=== PATIENT | female | born 1950 | race Caucasian/White ===

== ENCOUNTER 2019-05-19 11:58 | Emergency (ER) | payer MEDICARE, BC ==
[~2019-05-19] VITALS: Ht 162.6 cm; Wt 77.6 kg
[~2019-05-19 11:58] MED LIST: PHEN-716 PO
[2019-05-19] MEDS ORDERED: acetaminophen 325mg tablet PO ONE (12:10)
[2019-05-19 13:32] VITALS: BP 128/63
== END 2019-05-19 15:09 | disposition home or self-care (01) ==
LOC: ER 11:58
DX: S02.2XXA Fracture of nasal bones, initial encounter for closed fracture (principal); M25.532 Pain in left wrist; Z88.1 Allergy status to other antibiotic agents; Z88.8 Allergy status to other drugs, medicaments and biological substances; W18.49XA Other slipping, tripping and stumbling without falling, initial encounter; Y93.89 Activity, other specified; Y92.89 Other specified places as the place of occurrence of the external cause; Y99.9 Unspecified external cause status
CPT/HCPCS: 29125; 70450; 70486; 73110; 99284

== ENCOUNTER 2025-04-18 14:47 | Emergency (ER) | payer MEDICARE, OTHER ==
[~2025-04-18] VITALS: Ht 162.6 cm; Wt 84.6 kg
[2025-04-18 15:03] VITALS: TEMP 97.7
[2025-04-18 15:28] LABS: LEUKOCYTE ESTERASE ,URINE SMALL (Neg); NITRITES, URINE POSITIVE (Neg); OCCULT BLOOD,URINE SMALL (Neg)
[2025-04-18 15:33] LABS: UA COLLECTION TYPE CLN CATCH MIDSTREAM
[2025-04-18 15:36] LABS: SQUAMOUS EPITHELIAL CELL,UR FEW /LPF (FEW)
--- NOTE | 2025-04-18 15:49 | Physician Documentation ---
History of Present Illness ~ Chief Complaint: Urinary Symptoms Stated Complaint: POSSIBLE UTI Time Seen by MD: 15:08 OK to notify your PCP?: Yes Primary Medical Doctor: NONE Source: patient Mode of Arrival: POV Exam Limitations: no limitations HPI Patient reports having a bladder pain and heaviness which started this morning. She is also having some painful urination. She denies having any hamida blood in her urine. She did take azo this morning to help with the pain and reports that it did provide some relief. She reports that she has had UTIs in the past and these are her typical symptoms. She does report having some bilateral low back pain which started last night but she thought it was due to her chronic back pain. Medication Reconciliation Allergies: Coded Allergies: terbinafine (Verified Allergy, Unknown, 04/18/25) ampicillin (Verified Adverse Reaction, Unknown, STOMACH UPSET, 04/18/25) Scheduled Nitrofurantoin Monohyd/M-Cryst (Macrobid 100 mg Capsule), 1 CAP PO Q12H Scheduled PRN Phenazopyridine HCl (Pyridium), 1 TAB PO TID PRN for pain Past Medical History Past Medical History: No Pertinent History Past Surgical History: no surgical history Alcohol Use: None Drug Use: none Lives with: Family Lives In: Home Occupation: retired Review of Systems All Other Systems at this time: Reviewed and Negative Physical Exam Vital Signs: RN Vital Signs have been reviewed: Yes, Temperature: 97.7, Source: Temporal, Heart Rate: 90, Respiratory Rate: 18, BP: 144/74, Pulse Oximetry: 96, Weight: 84.600 Oxygen Flow Rate: 0 Pulse Oximetry Reflects: adequate oxygenation Physical Exam General: Alert, no apparent distress. HEENT: PERRL, EOMI, no injection, moist mucous membranes. Neck: Full range of motion. Respiratory: Lungs clear, no respiratory distress. Chest: No accessory muscle use. Cardiovascular: Regular rate and rhythm, no murmurs. Gastrointestinal: Soft, nontender, nondistended. Bowels sounds present. Back: No CVA tenderness. Extremities: Normal range of motion, no deformity. Neurologic: Oriented x4. Psychiatric: Normal mood and affect. Skin: Normal color, warm and dry. No edema, no ecchymosis. Progress Results/Orders Reviewed/noted all lab results: Yes Results/Orders Orders - BONNIE ALVA [employer] Cult Urine + [address] (04/18/25 15:37) Completed Orders - BONNIE ALVA [employer] Ua W/Microscopic, Cult If Ind (04/18/25 15:07) Nitrofur Swisher/Nitrofuran Macr (Macrobid (04/18/25 15:50) Medications Received in ER Medications (Trade) Dose Ordered Sig/Antonio Route PRN Reason Start Time Stop Time Status Last Admin Dose Admin (MacroBID capsule) 100 mg ONCE ONCE PO 04/18/25 15:50 04/18/25 15:54 DC 04/18/25 16:13 100 MG Vital Signs 04/18/25 04/18/25 15:03 16:27 Temp 97.7 Pulse 90 72 Resp 18 20 B/P (MAP) 144/74 138/60 Pulse Ox 96 97 O2 Flow Rate 0 Laboratory Tests Test 04/18/25 15:07 Urine Specimen Description Cln catch midstream Urine Color Yellow Urine Clarity Clear Urine pH 6.0 Urine Specific [place] <=1.005 Urine Protein Negative Urine Glucose (UA) Negative Urine Ketones Negative Urine Occult Blood Small Urine Nitrite Positive H Urine Bilirubin Negative Urine Urobilinogen 0.2 Urine Leukocyte Esterase Small H Urine RBC 3-10 Urine WBC 10-20 H Urine Squamous Epithelial Cells Few Urine Transitional Epithelial Cells Few Urine Bacteria Few Urine Culture Indicated Indicated Volume Urine Centrifuged 10 ml Urine Comment Microbiology Date/Time Source Procedure Growth Status 04/18/25 15:37 Urine Clean Catch Midstream Urine Culture - Preliminary Culture received. Resulted Medical Decision Making Additional information obtaine: old records Findings Presents with symptoms of UTI. Vital signs are stable, no signs of sepsis. Urinalysis reveals positive WBCs, leukocyte esterase, and nitrites, culture indicated. We discussed that I will place her on Macrobid for now and we will send her urine for culture. We discussed this typically takes 3 days to get results and if we need to change her antibiotic we will reach out to her to do so. First dose of Macrobid given in the department the rest sent to the pharmacy. Urinary Diff Dx:Considerations: Include: Pyelonephritis, Urolithiasis Genital Diff Dx:Considerations: Include: Vaginitis Departure Disposition: HOME / SELF CARE / HOMELESS Impression: Primary Impression: Acute urinary tract infection Condition: Stable Discharge Instructions: Urinary Tract Infection, Adult Additional Instructions: Drink plenty of fluids. Please return to the emergency department if you develop any new or concerning symptoms such as severe nausea and vomiting and unable to keep liquids down, if you develop severe back/flank or stomach pain, or if your symptoms are not clearly improving at home. Some people with this infection are sent home on a medication to numb the urinary tract. If you were sent home on this medication, do not be alarmed if your urine turns dark orange or reddish in color, this is a safe side effect of this medication. Referrals: NO PRIMARY CARE PROVIDER (PCP) Prescriptions Nitrofurantoin Monohyd/M-Cryst (Macrobid 100 mg Capsule) 100 Mg Capsule 1 CAP PO Q12H for 7 Days, #14 CAP 0 Refills Prov: BONNIE ALVA 04/18/25 Education Educated: Patient Educated regarding: diagnosis, treatment, prognosis, need for follow up Additional Comment Medical Screen Exam This patient recieved a medical screening examination. After reviewing the individual's medical complaints with presenting symptoms and performing an appropriate physical examination, it was determined that no immediate life- threatening emergency medical condition is present. This individual is also not a women having contractions. Signature Scribe Signature: . Attestation: Scribed for Bonnie Alvap by Bonnie Larson NP . 04/18/25 20:04 Parts of this note were created using [employer] voice recognition software program. While efforts were made to correct any mistakes made by this voice recognition software program, nonsensical phrases may remain in this note. In addition, there may be errors and syntax, grammar, content and spelling. BONNIE ALVA Apr 18, 2025 15:49
[2025-04-18] MEDS ORDERED: NITR100C6 PO (15:57)
[2025-04-18] MEDS: nitrofuran monohydrate/nitrofuran macrocrysal 100 MG (MacroBID) capsule PO ONE (16:13)
[2025-04-18 16:27] VITALS: BP 138/60; PULSE 72; RESP 20; O2SAT 97
== END 2025-04-18 16:28 | disposition home or self-care (01) ==
LOC: ER 14:48
DX: N39.0 Urinary tract infection, site not specified (principal); Z88.1 Allergy status to other antibiotic agents; Z87.440 Personal history of urinary (tract) infections; Z79.899 Other long term (current) drug therapy
CPT/HCPCS: 81001; 87088; 99283